=== PATIENT | female | born 1960 | race African-American/Black ===

== ENCOUNTER 2016-06-30 20:28 | Inpatient (IN) | payer MEDICAID ==
[~2016-06-30] VITALS: Ht 157.5 cm; Wt 98.9 kg
[2016-06-30 21:01] VITALS: BP 151/86
[2016-06-30 21:53] LABS: BASOPHILS % (AUTO) 1.7 % (0.0-2.0); LYMPHOCYTES % (AUTO) 37.8 % (20.0-45.0); MEAN CORPUSCULAR HEMOGLOBIN 27.5 PG (27.0-31.0); MEAN CORPUSCULAR HGB CONC 32.6 G/DL (32.0-36.0); MEAN CORPUSCULAR VOLUME 84 FL (80-99); MEAN PLATELET VOLUME 5.5 FL (6.5-10.1); MONOCYTES % (AUTO) 5.8 % (1.0-10.0); NEUTROPHILS % (AUTO) 53.8 % (45.0-75.0); PLATELET COUNT 399 K/UL (150-450); RED BLOOD COUNT 5.79 M/UL (4.20-5.40); RED CELL DISTRIBUTION WIDTH 13.6 % (11.6-14.8); WHITE BLOOD COUNT 11.7 K/UL (4.8-10.8)
[2016-06-30] MEDS ORDERED: Aspirin Baby 81mg ORAL ONE (22:00)
--- NOTE | 2016-06-30 22:08 | Emergency Room Report ---
History of Present Illness General Chief Complaint: Chest Pain Source: Patient Present Illness [facility] This is a pleasant 55-year-old female with past medical history of diabetes and hypertension. She presents with chief complaint of chest pain started on the left side. Onset yesterday. His been intermittent for the last 2 days. Lasting anywhere from 5 minutes last night to about an hour now. Pain is achy and spasm on the left lateral side. It then become achy in nature. Spread to her neck and shoulder on the left side. Carver diaphoretic sometime with it. Worse with exertion. Rest made it better. She had it several times a day. She came in by car. Has not take any medicine for this. Never had this problem before. Allergies: Coded Allergies: No Known Allergies (Unverified , 06/30/16) Patient History Past Medical History: see triage record, old chart reviewed, DM, HTN Past Surgical History: none Pertinent Family History: none Social History: Denies: smoking Now: No Immunizations: other Reviewed Nursing Documentation: PMH: Agreed, PSxH: Agreed Nursing Documentation-PMH Past Medical History: No History, Except For Hx Hypertension: Yes Hx Diabetes: Yes Hx Seizures: Yes Review of Systems Eye: Denies: blurred vision, eye pain ENT: Denies: ear pain, nose congestion, throat swelling Respiratory: Denies: cough, shortness of breath Cardiovascular: Reports: chest pain, Denies: palpitations Gastrointestinal: Denies: abdominal pain, diarrhea, nausea, vomiting Musculoskeletal: Denies: back pain, joint pain Skin: Denies: rash Neurological: Denies: headache, numbness Endocrine: Denies: increased thirst, increased urine Hematologic/Lymphatic: Denies: easy bruising All Other Systems: negative except mentioned in HPI Physical Exam Vital Signs Date Time Temp Pulse Resp B/P Pulse Ox O2 Delivery O2 Flow Rate FiO2 06/30/16 20:42 98.8 81 16 151/86 99 Room Air vitals showed hypertension Sp02 EP Interpretation: reviewed, normal General Appearance: well appearing, no apparent distress, alert Head: normocephalic, atraumatic Eyes: bilateral eye EOMI, bilateral eye PERRL ENT: hearing grossly normal, normal pharynx Neck: full range of motion, supple, no meningismus Respiratory: chest non-tender, lungs clear, normal breath sounds Cardiovascular #1: regular rate, rhythm, no murmur Gastrointestinal: normal bowel sounds, non tender, no mass, no organomegaly, no bruit, non-distended Musculoskeletal: back normal, gait/station normal, normal range of motion Psychiatric: mood/affect normal Skin: warm/dry Medical Decision Making Diagnostic Impression: Primary Impression: Unstable angina pectoris Additional Impressions: Hypertension Qualified Codes: I10 - Essential (primary) hypertension Morbid obesity with BMI of 40.0-44.9, adult ER Course Patient presents with symptoms concerning for unstable angina. EKG is unremarkable. She is pain-free. Aspirin given here. We'll give Lovenox also. No evidence of ST elevation HI. They sent her risk factor of diabetes, hypertension, family history, and obesity, she warrant admission or transfer for further cardiac evaluation. Lab Results Impression labs normal EKG Diagnostic Results Rate: normal Rhythm: NSR ST Segments: no acute changes Rhythm Strip Diag. Results EP Interpretation: yes Rate: 70 Rhythm: NSR, no PVC's, no ectopy Chest X-Ray Diagnostic Results EP Interpretation: Yes Findings: no consolidation, no effusion, no pneumothorax, no acute cardiopulmonary disease Number of Views: 1 Last Vital Signs Date Time Temp Pulse Resp B/P Pulse Ox O2 Delivery O2 Flow Rate FiO2 06/30/16 21:01 98.8 81 16 151/86 99 Room Air Status: improved Disposition: ADMITTED INPATIENT Condition: Serious Referrals: NOT CHOSEN SOURAV/,REFERRING (PCP) JONG DE LA TORRE M.D. Jun 30, 2016 22:08
[2016-06-30 22:09] LABS: ALANINE AMINOTRANSFERASE 14 U/L (3-33); ALBUMIN/GLOBULIN RATIO 1.1 (1.0-2.7); ANION GAP 14 (5-15); ASPARTATE AMINO TRANSFERASE 12 U/L (5-40); CALCIUM 9.5 mg/dL (8.6-10.2); CARBON DIOXIDE 27 mEQ/L (20-30); CHLORIDE 96 mEQ/L (98-107); CREATININE 0.7 mg/dL (0.5-0.9); GLOMERULAR FILTRATION RATE > 60 mL/min (>60); HEMOLYSIS 6; POTASSIUM 3.6 mEQ/L (3.4-4.9); SODIUM 137 mEQ/L (135-145); TOTAL PROTEIN 8.2 g/dL (6.6-8.7); TROPONIN I < 0.30 ng/mL (<=0.30)
[2016-06-30 22:15] LABS: APPEARANCE,URINE CLEAR; KETONES,URINE NEGATIVE (NEGATIVE); LEUKOCYTE ESTERASE ,URINE 1+ (NEGATIVE); NITRITE,URINE NEGATIVE (NEGATIVE); PH,URINE 5 (4.5-8.0); PROTEIN,URINE 2+ (NEGATIVE); UROBILINOGEN,URINE 1 MG/DL (0.0-1.0)
[2016-06-30] MEDS ORDERED: Enoxaparin 100mg Inj SUBQ ONE (22:15)
[2016-06-30 22:30] LABS: CKMB < 1.5 ng/mL (< 3.8)
[2016-06-30 22:34] LABS: BACTERIA,URINE MODERATE /HPF; RBC,URINE 0-2 /HPF (0 - 2); SQUAMOUS EPITHELIAL CELL,UR FEW /LPF (NONE/OCC)
[2016-06-30 22:35] VITALS: BP 135/70
[2016-06-30] MEDS ORDERED: cefTRIAXone 1 GM in D5W 50 ML IVPB ONE (23:00)
[2016-06-30] MEDS ORDERED: Tubing IV Cassette IV ONE (23:05)
[2016-06-30] MEDS ORDERED: D5W 50 ML IV ONE (23:05)
[2016-06-30] MEDS ORDERED: METFORMIN HCL500 M1 ORAL (23:15)
[2016-06-30] MEDS ORDERED: DYAZIDE1 CAP ORAL (23:15)
[2016-06-30] MEDS ORDERED: CYMBALTA30 MG ORAL (23:15)
[2016-07-01 00:19] VITALS: BP 132/70
[2016-07-01] MEDS ORDERED: ZONEGRAN100 MG ORAL (00:21)
[2016-07-01] MEDS ORDERED: Nitroglycerin Subl 0.4mg tab (Bottle Of 25) SL PRN (01:30)
[2016-07-01 04:17] VITALS: BP 138/77
[2016-07-01] MEDS: NovoLOG Insulin Flexpen SUBQ SCH ×4 (06:09→21:42)
[2016-07-01 07:37] LABS: ANION GAP 14 (5-15); CALCIUM 9.1 mg/dL (8.6-10.2); CARBON DIOXIDE 28 mEQ/L (20-30); CHLORIDE 100 mEQ/L (98-107); CHOLESTEROL 192 mg/dL (< 200); CHOLESTEROL/HDL RATIO 4.8 (3.3-4.4); CREATININE 0.6 mg/dL (0.5-0.9); GLOMERULAR FILTRATION RATE > 60 mL/min (>60); HEMOLYSIS 4; LDL CHOLESTEROL (CALC.) 135 mg/dL (60-99); MAGNESIUM 1.9 mg/dL (1.7-2.5); PHOSPHORUS 3.9 mg/dL (2.5-4.8); POTASSIUM 3.4 mEQ/L (3.4-4.9); SODIUM 142 mEQ/L (135-145)
[2016-07-01 07:38] LABS: BASOPHILS % (AUTO) 1.1 % (0.0-2.0); EOSINOPHILS % (AUTO) 1.5 % (0.0-3.0); LYMPHOCYTES % (AUTO) 39.6 % (20.0-45.0); MEAN CORPUSCULAR HEMOGLOBIN 28.2 PG (27.0-31.0); MEAN CORPUSCULAR HGB CONC 34.3 G/DL (32.0-36.0); MEAN CORPUSCULAR VOLUME 82 FL (80-99); MONOCYTES % (AUTO) 7.7 % (1.0-10.0); NEUTROPHILS % (AUTO) 50.1 % (45.0-75.0); PLATELET COUNT 343 K/UL (150-450); RED CELL DISTRIBUTION WIDTH 13.4 % (11.6-14.8); WHITE BLOOD COUNT 7.5 K/UL (4.8-10.8)
[2016-07-01 07:58] LABS: TROPONIN I < 0.30 ng/mL (<=0.30)
[2016-07-01 08:00] VITALS: BP 122/77
[2016-07-01] MEDS ORDERED: Triamterene/Hctz 37.5/25 cap ORAL SCH (09:00)
[2016-07-01] MEDS: metFORMIN 500mg tab ORAL SCH ×2 (09:17→17:38)
[2016-07-01] MEDS: DULoxetine 30mg cap ORAL SCH (09:17)
[2016-07-01] MEDS: Aspirin Baby 81mg ORAL SCH (09:17)
[2016-07-01] MEDS: Heparin 5000 units/ml inj SUBQ SCH ×2 (09:22→21:35)
[2016-07-01] MEDS ORDERED: Influenza Virus Vaccine 0.5ml IM ONE (10:00)
[2016-07-01 12:00] VITALS: BP 122/73
--- NOTE | 2016-07-01 13:03 | History & Physical ---
History and Physical History & Physicial Dictated for Int Med-Dr Plummer no. [id number]. SUSAN PATRICK Jul 01, 2016 13:03
--- NOTE | 2016-07-01 13:06 | Cardiac Electrophysiology PN ---
Subjective Subjective [id number] Objective Last 24 Hour Vital Signs Date Time Temp Pulse Resp B/P Pulse Ox O2 Delivery O2 Flow Rate FiO2 07/01/16 08:00 64 07/01/16 08:00 97.5 67 18 122/77 100 Room Air 07/01/16 04:17 98.8 65 19 138/77 96 Room Air 07/01/16 04:00 64 07/01/16 00:19 97.7 58 19 132/70 96 Room Air 07/01/16 00:00 59 06/30/16 23:18 98.8 67 19 135/70 99 Room Air 06/30/16 22:35 67 19 135/70 99 Room Air 06/30/16 21:01 98.8 81 16 151/86 99 Room Air 06/30/16 20:59 81 16 Room Air 06/30/16 20:42 98.8 81 16 151/86 99 Room Air Laboratory Tests Test 06/30/16 21:23 06/30/16 21:36 07/01/16 06:10 Urine Color Yellow Urine Appearance Clear Urine pH 5 (4.5-8.0) Urine Specific [place] 1.015 (1.005-1.035) Urine Protein 2+ (NEGATIVE) H Urine Glucose (UA) Negative (NEGATIVE) Urine Ketones Negative (NEGATIVE) Urine Occult Blood Negative (NEGATIVE) Urine Nitrite Negative (NEGATIVE) Urine Bilirubin Negative (NEGATIVE) Urine Urobilinogen 1 MG/DL (0.0-1.0) H Urine Leukocyte Esterase 1+ (NEGATIVE) H Urine RBC 0-2 /HPF (0 - 2) Urine WBC 5-10 /HPF (0 - 2) H Urine Squamous Epithelial Cells Few /LPF (NONE/OCC) Urine Bacteria Moderate /HPF (NONE) H Urine Opiates Screen Negative (NEGATIVE) Urine Barbiturates Screen Negative (NEGATIVE) Phencyclidine (PCP) Screen Negative (NEGATIVE) Urine Amphetamines Screen Negative (NEGATIVE) Urine Benzodiazepines Screen Negative (NEGATIVE) Urine Cocaine Screen Negative (NEGATIVE) Urine Marijuana (THC) Screen Negative (NEGATIVE) White Blood Count 11.7 K/UL (4.8-10.8) H 7.5 K/UL (4.8-10.8) Red Blood Count 5.79 M/UL (4.20-5.40) H 4.90 M/UL (4.20-5.40) Hemoglobin 15.9 G/DL (12.0-16.0) 13.8 G/DL (12.0-16.0) Hematocrit 48.8 % (37.0-47.0) H 40.3 % (37.0-47.0) Mean Corpuscular Volume 84 FL (80-99) 82 FL (80-99) Mean Corpuscular Hemoglobin 27.5 PG (27.0-31.0) 28.2 PG (27.0-31.0) Mean Corpuscular Hemoglobin Concent 32.6 G/DL (32.0-36.0) 34.3 G/DL (32.0-36.0) Red Cell Distribution Width 13.6 % (11.6-14.8) 13.4 % (11.6-14.8) Platelet Count 399 K/UL (150-450) 343 K/UL (150-450) Mean Platelet Volume 5.5 FL (6.5-10.1) L 6.0 FL (6.5-10.1) L Neutrophils (%) (Auto) 53.8 % (45.0-75.0) 50.1 % (45.0-75.0) Lymphocytes (%) (Auto) 37.8 % (20.0-45.0) 39.6 % (20.0-45.0) Monocytes (%) (Auto) 5.8 % (1.0-10.0) 7.7 % (1.0-10.0) Eosinophils (%) (Auto) 1.0 % (0.0-3.0) 1.5 % (0.0-3.0) Basophils (%) (Auto) 1.7 % (0.0-2.0) 1.1 % (0.0-2.0) Sodium Level 137 mEQ/L (135-145) 142 mEQ/L (135-145) Potassium Level 3.6 mEQ/L (3.4-4.9) 3.4 mEQ/L (3.4-4.9) Chloride Level 96 mEQ/L (98-107) L 100 mEQ/L (98-107) Carbon Dioxide Level 27 mEQ/L (20-30) 28 mEQ/L (20-30) Anion Gap 14 (5-15) 14 (5-15) Blood Urea Nitrogen 12 mg/dL (7-23) 11 mg/dL (7-23) Creatinine 0.7 mg/dL (0.5-0.9) 0.6 mg/dL (0.5-0.9) Estimat Glomerular Filtration Rate > 60 mL/min (>60) > 60 mL/min (>60) Glucose Level 156 mg/dL (74-106) H 182 mg/dL (74-106) H Calcium Level 9.5 mg/dL (8.6-10.2) 9.1 mg/dL (8.6-10.2) Total Bilirubin < 0.2 mg/dL (0.0-1.2) Aspartate Amino Transf (AST/SGOT) 12 U/L (5-40) Alanine Aminotransferase (ALT/SGPT) 14 U/L (3-33) Alkaline Phosphatase 100 U/L (35-104) Total Creatine Kinase 101 U/L (26-140) Creatine Kinase MB < 1.5 ng/mL (< 3.8) Creatine Kinase MB Relative Index Troponin I < 0.30 ng/mL (<=0.30) < 0.30 ng/mL (<=0.30) Total Protein 8.2 g/dL (6.6-8.7) Albumin 4.3 g/dL (3.5-5.2) Globulin 3.9 g/dL Albumin/Globulin Ratio 1.1 (1.0-2.7) Phosphorus Level 3.9 mg/dL (2.5-4.8) Magnesium Level 1.9 mg/dL (1.7-2.5) Triglycerides Level 86 mg/dL (< 150) Cholesterol Level 192 mg/dL (< 200) LDL Cholesterol 135 mg/dL (60-99) H HDL Cholesterol 40 mg/dL (> 60) Cholesterol/HDL Ratio 4.8 (3.3-4.4) H JAVED TO Jul 01, 2016 13:06
[2016-07-01] MEDS: Pantoprazole Inj IVP SCH (14:09)
[2016-07-01 16:00] VITALS: BP 141/77
[2016-07-01 20:00] VITALS: BP 133/75
--- NOTE | 2016-07-01 23:08 | Consultation ---
DATE OF CONSULTATION: 07/01/2016 CARDIOLOGY CONSULTATION: CONSULTING PHYSICIAN: Jac Singh M.D. ATTENDING PHYSICIAN: Jamal Plummer M.D. REFERRING PHYSICIAN: Eddie Tinoco M.D. REASON FOR CONSULTATION: Chest pain. HISTORY OF PRESENT ILLNESS: The patient is a 55-year-old lady with history of hypertension, diabetes, and morbid obesity, who presented to the emergency room complaining of chest pain, which is left-sided. She states that that has been happening intermittently over the last two days, lasting from five minutes up to an hour. She said that the pain also radiated to her neck and shoulder and at that time, she is diaphoretic. The patient came to the emergency room by car and the blood pressure was 151/86 with pulse of 81. Her EKG showed sinus rhythm with left atrial enlargement, but no acute ST-T wave abnormalities. The first set of cardiac enzymes are negative. Cardiology consultation was requested for further evaluation and management. PAST MEDICAL HISTORY: 1. Hypertension. 2. Diabetes. 3. Seizure disorder. FAMILY HISTORY: The patient states that her mother had two heart attacks, the first one in her 40s. REVIEW OF SYSTEMS: Review of systems was negative other than what was mentioned in the history of present illness. PHYSICAL EXAMINATION: VITAL SIGNS: Blood pressure is 122/77, pulse 64, respirations 18, and she is afebrile. HEENT: Head and Neck shows no JVD or carotid bruits. LUNGS: Clear. CARDIOVASCULAR: Shows regular S1 and S2 with no gallop or murmur. ABDOMEN: Soft and nontender. EXTREMITIES: No pitting edema. LABORATORY DATA: White count is 7.5, hemoglobin 13, hematocrit 40, and platelet count of 343,000. Sodium is 142, potassium 3.4, BUN of 11, creatinine 0.6, and glucose 182. Troponin is negative x2. Urine toxic screen is negative. ASSESSMENT AND PLAN: 1. Chest pain. The patient with multiple risk factors, including hypertension, diabetes, obesity and family history of coronary artery disease. The patient has been already ruled out for myocardial infarction. EKG is nonischemic. Due to risk factors, we will proceed with nuclear stress test for further evaluation. In the meantime, we will get an echocardiogram. 2. Hypertension. Continue Dyazide. I will add p.r.n. clonidine to her medical regimen. The patient likely will benefit from CASIE-inhibitor in view of patient's diabetes. 3. Diabetes, on metformin and insulin. Thank you very much, Dr. Plummer and Dr. Tinoco for allowing us to participate in the care of this patient. Please do not hesitate to contact me for any questions regarding my evaluation. Jac Singh M.D. DR: Cheo JOB#: [id number] CC:
--- NOTE | 2016-07-01 23:08 | History and Physical Report ---
DATE OF ADMISSION: 06/30/2016 CHIEF COMPLAINT: The patient is a 55-year-old female, presents with complaint of chest pain. HISTORY OF PRESENT ILLNESS: Began on , 06/29/2016. The patient began to experience chest pain. Chest pain is located on the left side of the chest. Chest pain has been on and off since . The patient states it seems to be worse while walking. The patient states it is not relieved with rest. The patient presented to [facility]. The patient was admitted for chest pain to rule out acute coronary syndrome. REVIEW OF SYSTEMS: Constitutional: The patient denies weight loss or weight gain. The patient denies fevers or chills. HEENT: The patient denies ear or throat pain. The patient denies headache. Cardiovascular: The patient complains of chest pain as above. The patient denies palpitations. Abdomen: The patient denies nausea, vomiting, diarrhea, or constipation. Genitourinary: The patient denies dysuria or increased frequency of urination. Neuromuscular: The patient has a history of seizure disorder. The patient denies generalized weakness. PAST MEDICAL HISTORY: Significant for: 1. Type 2 diabetes. 2. Hypertension. 3. History of peptic ulcer disease, status post endoscopy in October 2015. 4. Seizure disorder. PAST SURGICAL HISTORY: Significant for carpal tunnel surgery of the left wrist. CURRENT MEDICATIONS: 1. Cymbalta 30 mg one tablet p.o. daily. 2. Metformin 500 mg one tablet p.o. 3 times daily. 3. Triamterene/hydrochlorothiazide 37.5/25 one tablet p.o. daily item. 4. Zonegran 200 mg one tablet p.o. twice daily. ALLERGIES: No known drug allergies. SOCIAL HISTORY: The patient is single and is unemployed. The patient denies tobacco or alcohol use. FAMILY HISTORY: Significant for diabetes in patient's mother, father, and two siblings. Family history significant for cardiac coronary artery disease in the patient's father and brother. PHYSICAL EXAMINATION: VITAL SIGNS: Temperature 98.8, respirations 19, pulse 67, and blood pressure 135/70. GENERAL: The patient is well developed, well nourished, obese, female, in no apparent distress. HEENT: Pupils are equal and responsive to light and accommodation. Extraocular movements intact. NECK: Supple. No lymphadenopathy. CHEST: Lungs are clear to auscultation bilaterally without wheezes or rales. CARDIOVASCULAR: Regular rhythm and rate, S1, S2. No murmurs, rubs, or gallops. ABDOMEN: Soft, nontender, nondistended. Positive bowel sounds. No evidence of hepatosplenomegaly. Currently no guarding or rebound noted. EXTREMITIES: Negative for clubbing, cyanosis, or edema. RECTAL AND GENITAL: Refused. NEUROLOGIC: Cranial nerves II to XII are grossly intact without focal deficits. Motor strength is 5/5 bilaterally. Deep tendon reflexes are 2+ plantar. LABORATORY AND DIAGNOSTIC DATA: An EKG demonstrated normal sinus rhythm, approximately 70 beats per minute. There were no acute ST changes or Q-waves noted. Laboratory studies, WBC 11.7, hemoglobin 15.9, hematocrit 48.8, platelets 399,000. Sodium 137, potassium 3.6, chloride 96, CO2 27, BUN 12, creatinine 0.7, and glucose elevated 156. Troponin less than 0.3. ASSESSMENT: This is a 55-year-old, female with: 1. Chest pain. 2. Diabetes type 2. 3. Hypertension. 4. Peptic ulcer disease. 5. Seizure disorder. TREATMENT: 1. Chest pain. A Cardiology consultation was obtained with Dr. Jac Singh. A Cardiolite stress test is pending. The patient has been started on aspirin daily. We will follow recommendation of Cardiology. At this time, Cardiolite stress test is pending. 2. Diabetes type 2. The patient has been placed on metformin as above. A regular insulin sliding scale has been instituted. 3. Hypertension. Continue triamterene/hydrochlorothiazide as above. 4. Peptic ulcer disease. The patient has been started on Protonix. 5. Seizure disorder. Continue Zonegran as above. Eddie Tinoco M.D. DR: MAURY JOB#: [id number] CC:
[2016-07-02] VITALS: BP 115/63
[2016-07-02 04:00] VITALS: BP 133/74
[2016-07-02] MEDS: NovoLOG Insulin Flexpen SUBQ SCH ×4 (06:06→20:41)
[2016-07-02 07:45] LABS: BASOPHILS % (AUTO) 1.1 % (0.0-2.0); EOSINOPHILS % (AUTO) 1.2 % (0.0-3.0); LYMPHOCYTES % (AUTO) 40.2 % (20.0-45.0); MEAN CORPUSCULAR HEMOGLOBIN 27.1 PG (27.0-31.0); MEAN CORPUSCULAR HGB CONC 31.7 G/DL (32.0-36.0); MEAN CORPUSCULAR VOLUME 86 FL (80-99); MEAN PLATELET VOLUME 5.7 FL (6.5-10.1); MONOCYTES % (AUTO) 6.9 % (1.0-10.0); NEUTROPHILS % (AUTO) 50.6 % (45.0-75.0); PLATELET COUNT 351 K/UL (150-450); RED BLOOD COUNT 5.24 M/UL (4.20-5.40); RED CELL DISTRIBUTION WIDTH 13.9 % (11.6-14.8); WHITE BLOOD COUNT 7.2 K/UL (4.8-10.8)
[2016-07-02 08:08] LABS: TROPONIN I < 0.30 ng/mL (<=0.30)
[2016-07-02 08:14] VITALS: BP 120/72
[2016-07-02 08:14] LABS: ANION GAP 14 (5-15); CALCIUM 9.1 mg/dL (8.6-10.2); CARBON DIOXIDE 27 mEQ/L (20-30); CHLORIDE 99 mEQ/L (98-107); CREATININE 0.7 mg/dL (0.5-0.9); GLOMERULAR FILTRATION RATE > 60 mL/min (>60); HEMOLYSIS 6; POTASSIUM 3.5 mEQ/L (3.4-4.9); SODIUM 140 mEQ/L (135-145)
[2016-07-02] MEDS: Pantoprazole Inj IVP SCH (08:28)
[2016-07-02] MEDS: DULoxetine 30mg cap ORAL SCH (08:29)
[2016-07-02] MEDS: metFORMIN 500mg tab ORAL SCH ×2 (08:29→16:28)
[2016-07-02] MEDS: Lisinopril 10mg tab ORAL SCH (08:29)
[2016-07-02] MEDS: Aspirin Baby 81mg ORAL SCH (08:29)
[2016-07-02] MEDS: Heparin 5000 units/ml inj SUBQ SCH ×2 (08:32→20:42)
--- NOTE | 2016-07-02 10:29 | Diagnostic Imaging Report ---
Indication: Chest Pain Comparison: None A single view chest radiograph was obtained. Findings: Cardiomediastinal appearance is within normal limits for age. Pulmonary vascularity is appropriate. The diaphragmatic contour is smooth and costophrenic angles are sharp. No pleural effusions are identified. The bones are unremarkable. Impression: No acute findings
--- NOTE | 2016-07-02 11:33 | Cardiac Electrophysiology PN ---
Assessment/Plan Assessment/Plan 1. Chest pain. The patient with multiple risk factors, including hypertension, diabetes, obesity and family history of coronary artery disease. The patient has been already ruled out for myocardial infarction. EKG is nonischemic. Will proceed with nuclear stress test in AM. Echocardiogram EF 45-50%. 2. Hypertension. Continue Lisinopril 10 daily. 3. Diabetes, on metformin and insulin. 4. Hypokalemia 3.5. Replaced. SCOTT RN Subjective Subjective Alert in NAD. No chest pain or SOB. Objective Last 24 Hour Vital Signs Date Time Temp Pulse Resp B/P Pulse Ox O2 Delivery O2 Flow Rate FiO2 07/02/16 08:29 120/72 07/02/16 08:16 64 07/02/16 08:14 97.9 64 18 120/72 99 Room Air 07/02/16 04:00 96.5 60 17 133/74 Room Air 07/02/16 03:54 61 07/02/16 00:00 97.0 63 20 115/63 97 Room Air 07/01/16 23:53 59 07/01/16 20:00 97.4 68 21 133/75 95 Room Air 07/01/16 19:20 71 07/01/16 16:00 66 07/01/16 16:00 97.9 64 19 141/77 99 Room Air 07/01/16 12:00 74 07/01/16 12:00 97.2 65 18 122/73 100 Room Air Intake and Output 07/01/16 07/02/16 19:00 07:00 Intake Total 480 ml Balance 480 ml Intake Oral 480 ml # Voids 3 2 Laboratory Tests Test 07/02/16 06:05 White Blood Count 7.2 K/UL (4.8-10.8) Red Blood Count 5.24 M/UL (4.20-5.40) Hemoglobin 14.2 G/DL (12.0-16.0) Hematocrit 44.8 % (37.0-47.0) Mean Corpuscular Volume 86 FL (80-99) Mean Corpuscular Hemoglobin 27.1 PG (27.0-31.0) Mean Corpuscular Hemoglobin Concent 31.7 G/DL (32.0-36.0) L Red Cell Distribution Width 13.9 % (11.6-14.8) Platelet Count 351 K/UL (150-450) Mean Platelet Volume 5.7 FL (6.5-10.1) L Neutrophils (%) (Auto) 50.6 % (45.0-75.0) Lymphocytes (%) (Auto) 40.2 % (20.0-45.0) Monocytes (%) (Auto) 6.9 % (1.0-10.0) Eosinophils (%) (Auto) 1.2 % (0.0-3.0) Basophils (%) (Auto) 1.1 % (0.0-2.0) Sodium Level 140 mEQ/L (135-145) Potassium Level 3.5 mEQ/L (3.4-4.9) Chloride Level 99 mEQ/L (98-107) Carbon Dioxide Level 27 mEQ/L (20-30) Anion Gap 14 (5-15) Blood Urea Nitrogen 13 mg/dL (7-23) Creatinine 0.7 mg/dL (0.5-0.9) Estimat Glomerular Filtration Rate > 60 mL/min (>60) Glucose Level 164 mg/dL (74-106) H Calcium Level 9.1 mg/dL (8.6-10.2) Troponin I < 0.30 ng/mL (<=0.30) Microbiology Date/Time Source Procedure Growth Status 06/30/16 21:23 Urine,Clean Catch Urine Culture - Preliminary NO GROWTH AFTER 24 HOURS Resulted Objective HEENT: Head and Neck shows no JVD or carotid bruits. LUNGS: Clear. CARDIOVASCULAR: Shows regular S1 and S2 with no gallop or murmur. ABDOMEN: Soft and nontender. EXTREMITIES: No pitting edema. JAVED TO Jul 02, 2016 11:33
[2016-07-02 12:13] VITALS: BP 127/77
--- NOTE | 2016-07-02 14:34 | Cardiology Report ---
APPROVED REPORT EXAM: Two-dimensional and M-mode echocardiogram with Doppler and color Doppler. INDICATION Unstable angina M-Mode DIMENSIONS IVSd1.1 (0.7-1.1cm)Left Atrium (MM)3.0 (1.6-4.0cm) LVDd4.1 (3.5-5.6cm)Aortic Root2.4 (2.0-3.7cm) PWd1.1 (0.7-1.1cm)Aortic Cusp Exc.2.0 (1.5-2.0cm) LVDs2.6 (2.5-4.0cm) PWs1.9 cm Technically difficult study with very poor endocardial definition in apical viewes Probable normal left ventricular chamber size, systolic function and wall motion tot he extent visualized. Left ventricular ejection fraction cannot be estimated, No evidence of ventricular hypertrophy. No evidence of pericardial fat or effusion. All other cardiac chamber sizes are within normal limits. Mild focal aortic valve sclerosis with adequate cusp excursion. Mildly thickened mitral valve leaflets with normal excursion. Mild mtral annulus and aortic root calcification. Pulmonic valve visualized. Normal tricuspid valve structure. IVC at normal size with physiologic collapse. A color flow and spectral Doppler study was performed and revealed: No aortic regurgitation. Trace mitral regurgitation. Mitral diastolic velocities suggest reduced left ventricular relaxation (Grade I). Trace tricuspid regurgitation. Tricuspid systolic velocities suggests peak right ventricular systolic pressure ofat least 9mmHg.
[2016-07-02 16:00] VITALS: BP 103/47
--- NOTE | 2016-07-02 16:21 | Internal Med Progress Note ---
Subjective Date of Service: Jul 02, 2016 Physician Name Susan Patrick Attending Physician Jamal Plummer MD Current Medications Medications (Trade) Dose Ordered Sig/Gloria Route PRN Reason Start Time Stop Time Status Last Admin Dose Admin Acetaminophen (Tylenol) 650 mg Q6H PRN ORAL Mild Pain/Temp > 100.5 07/01/16 01:30 07/31/16 01:29 07/01/16 21:49 Aspirin (ASA) 81 mg DAILY ORAL 07/01/16 09:00 07/31/16 08:59 07/02/16 08:29 Dextrose (Dextrose 50%) STAT PRN IV Hypoglycemia 07/01/16 01:45 07/31/16 01:44 Duloxetine HCl (Cymbalta) 30 mg DAILY ORAL 07/01/16 09:00 07/31/16 08:59 07/02/16 08:29 Heparin Sodium (Porcine) (Heparin 5000 units/ml) 5,000 units EVERY 12 HOURS SUBQ 07/01/16 09:00 07/31/16 08:59 07/02/16 08:32 Insulin Aspart (NovoLOG) BEFORE MEALS AND HS SUBQ 07/01/16 06:30 07/31/16 06:29 07/02/16 12:08 Lisinopril (Zestril) 10 mg DAILY ORAL 07/02/16 09:00 08/01/16 08:59 07/02/16 08:29 Metformin HCl (Glucophage) 500 mg BID ORAL 07/01/16 09:00 07/31/16 08:59 07/02/16 08:29 Nitroglycerin (Ntg) 0.4 mg Q5M PRN SL Prn Chest Pain 07/01/16 01:30 07/31/16 01:29 Ondansetron HCl (Zofran) 4 mg Q4HR PRN IVP Nausea & Vomiting 07/01/16 01:30 07/31/16 01:29 Pantoprazole (Protonix) 40 mg DAILY IVP 07/01/16 13:15 07/31/16 13:14 07/02/16 08:28 Zonisamide (Zonegran) 200 mg Q12HR ORAL 07/02/16 09:45 08/01/16 09:44 07/02/16 10:24 Allergies: Coded Allergies: No Known Allergies (Unverified , 06/30/16) ROS Limited/Unobtainable: No Constitutional: Reports: no symptoms HEENT: Reports: no symptoms Cardiovascular: Reports: chest pain Respiratory: Reports: no symptoms Gastrointestinal/Abdominal: Reports: no symptoms Genitourinary: Reports: no symptoms Neurologic/Psychiatric: Reports: no symptoms Subjective 55 YO F admitted with chest pain. Cover for Int Tevin-Dr Plummer. Await adenosine cardiac stress test. Objective Last Vital Signs Date Time Temp Pulse Resp B/P Pulse Ox O2 Delivery O2 Flow Rate FiO2 07/02/16 16:10 80 07/02/16 12:13 98.0 20 127/77 Room Air 07/02/16 08:14 99 General Appearance: WD/WN, no apparent distress, alert EENT: PERRL/EOMI, normal ENT inspection Neck: non-tender, normal alignment, supple, normal inspection Cardiovascular: normal peripheral pulses, normal rate, regular rhythm, no gallop/murmur, no JVD Respiratory/Chest: chest wall non-tender, lungs clear, normal breath sounds, no respiratory distress, no accessory muscle use Abdomen: normal bowel sounds, non tender, soft, no organomegaly, no mass Extremities: normal range of motion, non-tender 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, no motor/sensory deficits Skin: normal pigmentation, warm/dry Laboratory Tests Test 07/02/16 06:05 White Blood Count 7.2 K/UL (4.8-10.8) Red Blood Count 5.24 M/UL (4.20-5.40) Hemoglobin 14.2 G/DL (12.0-16.0) Hematocrit 44.8 % (37.0-47.0) Mean Corpuscular Volume 86 FL (80-99) Mean Corpuscular Hemoglobin 27.1 PG (27.0-31.0) Mean Corpuscular Hemoglobin Concent 31.7 G/DL (32.0-36.0) L Red Cell Distribution Width 13.9 % (11.6-14.8) Platelet Count 351 K/UL (150-450) Mean Platelet Volume 5.7 FL (6.5-10.1) L Neutrophils (%) (Auto) 50.6 % (45.0-75.0) Lymphocytes (%) (Auto) 40.2 % (20.0-45.0) Monocytes (%) (Auto) 6.9 % (1.0-10.0) Eosinophils (%) (Auto) 1.2 % (0.0-3.0) Basophils (%) (Auto) 1.1 % (0.0-2.0) Sodium Level 140 mEQ/L (135-145) Potassium Level 3.5 mEQ/L (3.4-4.9) Chloride Level 99 mEQ/L (98-107) Carbon Dioxide Level 27 mEQ/L (20-30) Anion Gap 14 (5-15) Blood Urea Nitrogen 13 mg/dL (7-23) Creatinine 0.7 mg/dL (0.5-0.9) Estimat Glomerular Filtration Rate > 60 mL/min (>60) Glucose Level 164 mg/dL (74-106) H Calcium Level 9.1 mg/dL (8.6-10.2) Troponin I < 0.30 ng/mL (<=0.30) Microbiology Date/Time Source Procedure Growth Status 06/30/16 21:23 Urine,Clean Catch Urine Culture - Preliminary NO GROWTH AFTER 24 HOURS Resulted Intake and Output 07/01/16 07/02/16 19:00 07:00 Intake Total 480 ml Balance 480 ml Intake Oral 480 ml # Voids 3 2 Assessment/Plan Problem List: (1) Chest pain Assessment & Plan: See cardiology note. Await cardiac stress test in am . (2) Diabetes mellitus Assessment & Plan: Continue metformin and novolog sliding scale. (3) Peptic ulcer disease (4) Seizure disorder Assessment & Plan: Cont zonegran (5) Obesity (BMI 35.0-39.9 without comorbidity) (6) Hypertension Assessment & Plan: Cont lisinopril Status: progressing SUSAN PATRICK Jul 02, 2016 16:21
[2016-07-02 20:00] VITALS: BP 117/62
[2016-07-03] VITALS: BP 107/65
[2016-07-03 04:00] VITALS: BP 120/53
[2016-07-03] MEDS: NovoLOG Insulin Flexpen SUBQ SCH ×4 (06:50→21:31)
[2016-07-03 08:00] VITALS: BP 120/60
[2016-07-03 08:24] LABS: BASOPHILS % (AUTO) 1.4 % (0.0-2.0); EOSINOPHILS % (AUTO) 1.7 % (0.0-3.0); MEAN CORPUSCULAR HEMOGLOBIN 27.5 PG (27.0-31.0); MEAN CORPUSCULAR HGB CONC 31.9 G/DL (32.0-36.0); MEAN CORPUSCULAR VOLUME 86 FL (80-99); MEAN PLATELET VOLUME 5.4 FL (6.5-10.1); MONOCYTES % (AUTO) 6.9 % (1.0-10.0); PLATELET COUNT 356 K/UL (150-450); RED BLOOD COUNT 5.22 M/UL (4.20-5.40); RED CELL DISTRIBUTION WIDTH 13.8 % (11.6-14.8); WHITE BLOOD COUNT 7.5 K/UL (4.8-10.8)
[2016-07-03] MEDS: DULoxetine 30mg cap ORAL SCH (08:51)
[2016-07-03] MEDS: Aspirin Baby 81mg ORAL SCH (08:51)
[2016-07-03] MEDS: Lisinopril 10mg tab ORAL SCH (08:52)
[2016-07-03] MEDS: metFORMIN 500mg tab ORAL SCH ×2 (08:52→18:06)
[2016-07-03] MEDS: Pantoprazole Inj IVP SCH (08:53)
[2016-07-03] MEDS: Heparin 5000 units/ml inj SUBQ SCH ×2 (08:54→21:32)
[2016-07-03 08:55] LABS: ANION GAP 15 (5-15); CALCIUM 9.3 mg/dL (8.6-10.2); CARBON DIOXIDE 25 mEQ/L (20-30); CHLORIDE 99 mEQ/L (98-107); CREATININE 0.7 mg/dL (0.5-0.9); GLOMERULAR FILTRATION RATE > 60 mL/min (>60); HEMOLYSIS 4; POTASSIUM 3.9 mEQ/L (3.4-4.9); SODIUM 139 mEQ/L (135-145)
[2016-07-03 12:00] VITALS: BP 120/73
[2016-07-03] MEDS ORDERED: Adenosine Inj IVP SCH (12:30)
--- NOTE | 2016-07-03 12:48 | Internal Med Progress Note ---
Subjective Date of Service: Jul 03, 2016 Physician Name Susan Patrick Attending Physician Jamal Plummer MD Current Medications Medications (Trade) Dose Ordered Sig/Gloria Route PRN Reason Start Time Stop Time Status Last Admin Dose Admin Acetaminophen (Tylenol) 650 mg Q6H PRN ORAL Mild Pain/Temp > 100.5 07/01/16 01:30 07/31/16 01:29 07/01/16 21:49 Adenosine (Adenoscan) 83 mg ONCE IVP 07/03/16 12:30 07/03/16 23:59 Aspirin (ASA) 81 mg DAILY ORAL 07/01/16 09:00 07/31/16 08:59 07/03/16 08:51 Dextrose (Dextrose 50%) STAT PRN IV Hypoglycemia 07/01/16 01:45 07/31/16 01:44 Duloxetine HCl (Cymbalta) 30 mg DAILY ORAL 07/01/16 09:00 07/31/16 08:59 07/03/16 08:51 Heparin Sodium (Porcine) (Heparin 5000 units/ml) 5,000 units EVERY 12 HOURS SUBQ 07/01/16 09:00 07/31/16 08:59 07/03/16 08:54 Insulin Aspart (NovoLOG) BEFORE MEALS AND HS SUBQ 07/01/16 06:30 07/31/16 06:29 07/03/16 06:50 Lisinopril (Zestril) 10 mg DAILY ORAL 07/02/16 09:00 08/01/16 08:59 07/03/16 08:52 Metformin HCl (Glucophage) 500 mg BID ORAL 07/01/16 09:00 07/31/16 08:59 07/03/16 08:52 Nitroglycerin (Ntg) 0.4 mg Q5M PRN SL Prn Chest Pain 07/01/16 01:30 07/31/16 01:29 Ondansetron HCl (Zofran) 4 mg Q4HR PRN IVP Nausea & Vomiting 07/01/16 01:30 07/31/16 01:29 Pantoprazole (Protonix) 40 mg DAILY IVP 07/01/16 13:15 07/31/16 13:14 07/03/16 08:53 Zonisamide (Zonegran) 200 mg Q12HR ORAL 07/02/16 09:45 08/01/16 09:44 1/9/17 08:51 Allergies: Coded Allergies: No Known Allergies (Unverified , 06/30/16) ROS Limited/Unobtainable: No Constitutional: Reports: no symptoms HEENT: Reports: no symptoms Cardiovascular: Reports: chest pain Respiratory: Reports: no symptoms Gastrointestinal/Abdominal: Reports: no symptoms Genitourinary: Reports: no symptoms Neurologic/Psychiatric: Reports: no symptoms Subjective 55 YO F admitted with chest pain. Cover for Int Tevin-Dr Plummer. Await adenosine cardiac stress test today. Objective Last Vital Signs Date Time Temp Pulse Resp B/P Pulse Ox O2 Delivery O2 Flow Rate FiO2 07/03/16 12:00 98.0 61 17 120/73 98 Room Air Laboratory Tests Test 07/03/16 08:00 White Blood Count 7.5 K/UL (4.8-10.8) Red Blood Count 5.22 M/UL (4.20-5.40) Hemoglobin 14.3 G/DL (12.0-16.0) Hematocrit 44.9 % (37.0-47.0) Mean Corpuscular Volume 86 FL (80-99) Mean Corpuscular Hemoglobin 27.5 PG (27.0-31.0) Mean Corpuscular Hemoglobin Concent 31.9 G/DL (32.0-36.0) L Red Cell Distribution Width 13.8 % (11.6-14.8) Platelet Count 356 K/UL (150-450) Mean Platelet Volume 5.4 FL (6.5-10.1) L Neutrophils (%) (Auto) 49.0 % (45.0-75.0) Lymphocytes (%) (Auto) 41.0 % (20.0-45.0) Monocytes (%) (Auto) 6.9 % (1.0-10.0) Eosinophils (%) (Auto) 1.7 % (0.0-3.0) Basophils (%) (Auto) 1.4 % (0.0-2.0) Sodium Level 139 mEQ/L (135-145) Potassium Level 3.9 mEQ/L (3.4-4.9) Chloride Level 99 mEQ/L (98-107) Carbon Dioxide Level 25 mEQ/L (20-30) Anion Gap 15 (5-15) Blood Urea Nitrogen 14 mg/dL (7-23) Creatinine 0.7 mg/dL (0.5-0.9) Estimat Glomerular Filtration Rate > 60 mL/min (>60) Glucose Level 159 mg/dL (74-106) H Calcium Level 9.3 mg/dL (8.6-10.2) Microbiology Date/Time Source Procedure Growth Status 06/30/16 21:23 Urine,Clean Catch Urine Culture - Final NO GROWTH AFTER 48 HOURS Complete Intake and Output 07/02/16 07/03/16 19:00 07:00 Intake Total 490 ml 260 ml Balance 490 ml 260 ml Intake Oral 490 ml Tube Feeding 260 ml # Voids 3 2 Objective General Appearance: WD/WN, no apparent distress, alert EENT: PERRL/EOMI, normal ENT inspection Neck: non-tender, normal alignment, supple, normal inspection Cardiovascular: normal peripheral pulses, normal rate, regular rhythm, no gallop/murmur, no JVD Respiratory/Chest: chest wall non-tender, lungs clear, normal breath sounds, no respiratory distress, no accessory muscle use Abdomen: normal bowel sounds, non tender, soft, no organomegaly, no mass Extremities: normal range of motion, non-tender Neurologic: tobacco sieve operator II-XII grossly normal, no motor/sensory deficits Skin: normal pigmentation, warm/dry Assessment/Plan Problem List: (1) Chest pain Assessment & Plan: See cardiology note. Await cardiac stress test today . (2) Diabetes mellitus Assessment & Plan: Continue metformin and novolog sliding scale. (3) Peptic ulcer disease (4) Seizure disorder Assessment & Plan: Cont zonegran (5) Obesity (BMI 35.0-39.9 without comorbidity) (6) Hypertension Assessment & Plan: Cont lisinopril Status: not improved SUSAN PATRICK Jul 03, 2016 12:48
[2016-07-03 16:00] VITALS: BP 124/65
[2016-07-03 20:00] VITALS: BP 118/69
[2016-07-04 00:31] VITALS: BP 127/51
[2016-07-04 04:12] VITALS: BP 131/69
[2016-07-04] MEDS: NovoLOG Insulin Flexpen SUBQ SCH ×3 (06:08→16:30)
[2016-07-04 08:09] VITALS: BP 123/75
[2016-07-04] MEDS: DULoxetine 30mg cap ORAL SCH (08:49)
[2016-07-04] MEDS: Lisinopril 10mg tab ORAL SCH (08:49)
[2016-07-04] MEDS: Aspirin Baby 81mg ORAL SCH (08:49)
[2016-07-04] MEDS: metFORMIN 500mg tab ORAL SCH ×2 (08:49→18:16)
[2016-07-04] MEDS: Pantoprazole Inj IVP SCH (08:50)
[2016-07-04] MEDS: Heparin 5000 units/ml inj SUBQ SCH (08:51)
[2016-07-04 09:28] LABS: BASOPHILS % (AUTO) 1.2 % (0.0-2.0); LYMPHOCYTES % (AUTO) 36.7 % (20.0-45.0); MEAN CORPUSCULAR HEMOGLOBIN 27.1 PG (27.0-31.0); MEAN CORPUSCULAR HGB CONC 31.4 G/DL (32.0-36.0); MEAN CORPUSCULAR VOLUME 86 FL (80-99); MEAN PLATELET VOLUME 5.6 FL (6.5-10.1); MONOCYTES % (AUTO) 6.5 % (1.0-10.0); NEUTROPHILS % (AUTO) 53.8 % (45.0-75.0); PLATELET COUNT 325 K/UL (150-450); RED BLOOD COUNT 4.91 M/UL (4.20-5.40); RED CELL DISTRIBUTION WIDTH 13.8 % (11.6-14.8); WHITE BLOOD COUNT 7.1 K/UL (4.8-10.8)
[2016-07-04 09:35] LABS: ANION GAP 12 (5-15); CALCIUM 8.6 mg/dL (8.6-10.2); CARBON DIOXIDE 25 mEQ/L (20-30); CHLORIDE 103 mEQ/L (98-107); CREATININE 0.7 mg/dL (0.5-0.9); GLOMERULAR FILTRATION RATE > 60 mL/min (>60); HEMOLYSIS 0; POTASSIUM 3.9 mEQ/L (3.4-4.9); SODIUM 140 mEQ/L (135-145)
[2016-07-04 11:58] VITALS: BP 115/65
[2016-07-04 16:00] VITALS: BP_SYST 128; BP_SYST 181; BP_DIAS 111; BP_DIAS 61
--- NOTE | 2016-07-04 17:26 | Cardiac Electrophysiology PN ---
Assessment/Plan Status Narrative Technically difficult study with very poor endocardial definition in apical viewes Probable normal left ventricular chamber size, systolic function and wall motion tot he extent visualized. Left ventricular ejection fraction cannot be estimated, No evidence of ventricular hypertrophy. No evidence of pericardial fat or effusion. All other cardiac chamber sizes are within normal limits. Mild focal aortic valve sclerosis with adequate cusp excursion. Mildly thickened mitral valve leaflets with normal excursion. Mild mtral annulus and aortic root calcification. Pulmonic valve visualized. Normal tricuspid valve structure. IVC at normal size with physiologic collapse. A color flow and spectral Doppler study was performed and revealed: No aortic regurgitation. Trace mitral regurgitation. Mitral diastolic velocities suggest reduced left ventricular relaxation (Grade I ). Trace tricuspid regurgitation. Tricuspid systolic velocities suggests peak right ventricular systolic pressure ofat least 9mmHg. Assessment/Plan 1. Chest pain in a patient with multiple risk factors, including hypertension, diabetes, obesity and family history of coronary artery disease. Ruled out for myocardial infarction. EKG is nonischemic. Nuclear stress result pending. EF 45-50% preliminary report. 2. Hypertension. Continue Lisinopril 10 daily. 3. Diabetes, on metformin and insulin. SCOTT RN Subjective Subjective Alert in NAD. No chest pain or SOB.No arrhythmias on tele. Objective Last 24 Hour Vital Signs Date Time Temp Pulse Resp B/P Pulse Ox O2 Delivery O2 Flow Rate FiO2 07/04/16 16:00 97.0 65 18 128/61 96 Room Air 07/04/16 12:00 56 07/04/16 11:58 97.0 64 18 115/65 97 Room Air 07/04/16 08:49 123/75 07/04/16 08:09 97.3 58 18 123/75 96 Room Air 07/04/16 08:00 67 07/04/16 04:12 98.5 61 18 131/69 95 Room Air 07/04/16 04:00 58 07/04/16 00:31 97.5 58 19 127/51 96 Room Air 07/04/16 00:00 65 07/03/16 20:00 97.7 65 20 118/69 99 Room Air 07/03/16 20:00 63 Intake and Output 07/03/16 07/04/16 19:00 07:00 Intake Total 460 ml 480 ml Balance 460 ml 480 ml Intake Oral 460 ml 480 ml # Voids 2 4 Laboratory Tests Test 07/04/16 09:00 White Blood Count 7.1 K/UL (4.8-10.8) Red Blood Count 4.91 M/UL (4.20-5.40) Hemoglobin 13.3 G/DL (12.0-16.0) Hematocrit 42.4 % (37.0-47.0) Mean Corpuscular Volume 86 FL (80-99) Mean Corpuscular Hemoglobin 27.1 PG (27.0-31.0) Mean Corpuscular Hemoglobin Concent 31.4 G/DL (32.0-36.0) L Red Cell Distribution Width 13.8 % (11.6-14.8) Platelet Count 325 K/UL (150-450) Mean Platelet Volume 5.6 FL (6.5-10.1) L Neutrophils (%) (Auto) 53.8 % (45.0-75.0) Lymphocytes (%) (Auto) 36.7 % (20.0-45.0) Monocytes (%) (Auto) 6.5 % (1.0-10.0) Eosinophils (%) (Auto) 2.0 % (0.0-3.0) Basophils (%) (Auto) 1.2 % (0.0-2.0) Sodium Level 140 mEQ/L (135-145) Potassium Level 3.9 mEQ/L (3.4-4.9) Chloride Level 103 mEQ/L (98-107) Carbon Dioxide Level 25 mEQ/L (20-30) Anion Gap 12 (5-15) Blood Urea Nitrogen 11 mg/dL (7-23) Creatinine 0.7 mg/dL (0.5-0.9) Estimat Glomerular Filtration Rate > 60 mL/min (>60) Glucose Level 228 mg/dL (74-106) H Calcium Level 8.6 mg/dL (8.6-10.2) Objective HEENT: Head and Neck shows no JVD or carotid bruits. LUNGS: Clear. CARDIOVASCULAR: Shows regular S1 and S2 with no gallop or murmur. ABDOMEN: Soft and nontender. EXTREMITIES: No pitting edema. JAVED TO Jul 04, 2016 17:26
--- NOTE | 2016-07-04 18:03 | Discharge Summary ---
Discharge Summary Hospital Course Date of Admission Jun 30, 2016 at 22:05 Date of Discharge Admitting Diagnosis Unstable angina HPI Devora Green is a 55 year old female who was admitted on Jun 30, 2016 at 22: 05 for Unstable Angina Hospital Course Dictated for Int Med-Dr Plummer no. [id number]. Discharge Discharge Disposition Patient was discharged to Discharge Diagnoses: SUSAN PATRICK Jul 04, 2016 18:03
--- NOTE | 2016-07-04 18:04 | Cardiology Report ---
APPROVED REPORT EKG Measurement Heart [id number] Normal sinus rhythm Possible Left atrial enlargement Borderline ECG
--- NOTE | 2016-07-05 10:07 | Discharge Summary ---
DATE OF ADMISSION: 06/30/2016 DATE OF DISCHARGE: 07/04/2016 ADMITTING DIAGNOSES: 1. Chest pain. 2. Diabetes type 2. 3. Hypertension. 4. Peptic ulcer disease. 5. Seizure disorder. 6. Obesity. DISCHARGE DIAGNOSES: 1. Chest pain. 2. Diabetes. 3. Hypertension. 4. Peptic ulcer disease. 5. Seizure disorder. 6. Obesity. HOSPITAL COURSE BY PROBLEM LIST: 1. Chest pain. A Cardiology consultation was obtained with Dr. Jac Singh. The patient underwent serial troponin levels. All were negative. The patient underwent a Cardiolite stress test on 07/03/2016. Cardiolite stress test was reported as nonischemic. The patient also underwent an echocardiogram, which revealed an ejection fraction of 40 to 45%. The patient is to follow up with Dr. Jac Singh as an outpatient. Chest pain is thought not to be secondary to cardiac ischemia. 2. Diabetes type 2. The patient remained on metformin 500 mg one tablet p.o. twice daily. NovoLog was added as a sliding scale. Blood sugars have been well controlled during hospitalization. The patient follow up with her primary care physician in one week. 3. Hypertension. The patient was placed on lisinopril 10 mg one tablet p.o. daily. The patient is to continue Maxzide 37.5/25 mg one tablet p.o. daily as an outpatient. The patient follow up with her primary care physician. 4. Peptic ulcer disease. The patient remained on Protonix 40 mg one tablet p.o. daily. The patient experienced no reflux during the hospitalization. 5. Seizure disorder. The patient remained on Zonegran 100 mg two tablets p.o. daily. The patient experienced no seizures during the hospitalization. DISCHARGE MEDICATIONS: Please refer to discharge medication list. DISCHARGE INSTRUCTIONS: The patient is discharged home today, 07/04/2016. The patient is to follow up with her primary care physician in one week. Eddie Tinoco M.D. DR: STANLEY JOB#: [id number] CC:
--- NOTE | 2016-07-11 16:11 | Diagnostic Imaging Report ---
Indications: 55-year-old female inpatient presents with chest pain Technique: The examination was supervised by Dr. Gardner. Baseline electrocardiogram was recorded. Adenosine was administered the patient intravenously per usual protocol. Continuous electrocardiography, heart rate, blood pressure monitoring performed. Immediate SPECT imaging of the left ventricular myocardium was performed in multiple planes with the patient in supine position, following intravenous administration of 32.9 mCi 99 M technetium-sestaMIBI. Cinegraphic images were generated for wall motion analysis. Left ventricular ejection fraction was calculated. Similar imaging was performed at rest immediately prior with intravenous administration of 0.3 mCi 99 M technetium-sestaMIBI. Findings: Comparison: None. Both stress and rest images demonstrate a small area of decreased perfusion in the apex, fixed. Rest images demonstrate decreased perfusion throughout the inferior wall which is not present on stress images.. Cinegraphic images demonstrate no areas of wall motion abnormality. Ejection fraction is estimated at 80%. The patient developed shortness breath, chest pain, flushing but no acute electrocardiographic changes during adenosine infusion. Supervising supervisor boat outfitting's conclusions are that clinical response to pharmacologic stress simulation is diagnostic while electrocardiographic response is nonischemic. IMPRESSION: No evidence of chemically induced left ventricular myocardial ischemia. Small fixed perfusion defect in the apex likely represents normal apical thinning Decreased perfusion in the inferior wall on rest images only likely artifactual LVEF not decreased This partially correlates with supervising supervisor boat outfitting's conclusions.
== END 2016-07-04 19:30 | disposition home or self-care (01) | DRG 198 ==
LOC: EMR 21:30 → 2E 22:05 → EDBEDREQ 22:12
DX: I25.10 Atherosclerotic heart disease of native coronary artery without angina pectoris (principal); K27.9 Peptic ulcer, site unspecified, unspecified as acute or chronic, without hemorrhage or perforation; I10 Essential (primary) hypertension; E11.9 Type 2 diabetes mellitus without complications; E87.6 Hypokalemia; G40.909 Epilepsy, unspecified, not intractable, without status epilepticus; E66.9 Obesity, unspecified; Z68.39 Body mass index [BMI] 39.0-39.9, adult
CPT/HCPCS: 36415; 71010; 78452; 80048; 80053; 80061; 80300; 81003; 82550; 82553; 82962; 83735; 84100; 84484; 85025; 87086; 93005; 93017; 93306; J1815; J8499; Q2036